=== PATIENT | male | born 1975 ===

== ENCOUNTER 2017-05-14 07:55 | Emergency (ER) | payer OTHER ==
[2017-05-14 08:07] VITALS: BMI 25.7
[2017-05-14 08:24] VITALS: BP 112/78; PULSE 68; RESP 18; TEMP 97.8; O2SAT 98
--- NOTE | 2017-05-14 08:56 | C.PDOC ---
History Of Present Illness 42 yo male come in for evaluation of nasal contusion sustained 2 days ago. Pt reports, " playing soccer, when suddenly turn and hit my nose over the post by accident". Pt sts, " have hear pop in my nose". Pt sts, gradually developed nasal coingestion, post-nasal drip and concerned about deformity over nasal bridge, did not have before. Otherwise, pt denies LOC, syncope, severe headache , dizziness, visual changes, focal deficits, neck pain, drooling, nasal discharges, ear discharges. Ambulate to ED for evaluation, not in nay apparent distress. Time Seen by Provider: 05/14/17 08:20 Chief Complaint (Nursing): ENT Problem History Per: Patient Past Medical History Reviewed: Historical Data, Nursing Documentation, Vital Signs Vital Signs: Last Vital Signs Temp 97.8 F 05/14/17 08:07 Pulse 68 05/14/17 08:07 Resp 18 05/14/17 08:07 BP 112/78 05/14/17 08:07 Pulse Ox 98 05/14/17 08:07 Surgical History: Cholecystectomy Family History: States: No Known Family Hx - Social History Hx Tobacco Use: No Hx Alcohol Use: No Hx Substance Use: No - Immunization History Hx Tetanus Toxoid Vaccination: No Hx Influenza Vaccination: No Hx Pneumococcal Vaccination: No Review Of Systems Except As Marked, All Systems Reviewed And Found Negative. Constitutional: Negative for: Fever, Chills Eyes: Negative for: Vision Change, Redness ENT: Positive for: Nose Congestion. Negative for: Ear Pain, Ear Discharge, Throat Pain, Throat Swelling Cardiovascular: Negative for: Chest Pain Musculoskeletal: Negative for: Neck Pain Skin: Negative for: Bruising Neurological: Negative for: Weakness, Numbness, Altered Mental Status, Headache , Dizziness Physical Exam - Physical Exam Appears: Well, Non-toxic, No Acute Distress Skin: Normal Color, Warm, No Rash, No Ecchymosis Head: Atraumatic, Normacephalic Eye(s): bilateral: PERRL Ear(s): Bilateral: Normal Nose: No Flaring, No Discharge, No Epistaxis, Tenderness (over nasal bridge with mild sorrounding edema, no palpable deformity.), No Septal Hematoma Oral Mucosa: Moist, No Drooling, No Trismus Tongue: Normal Appearing, No Swelling, No Lesions, No Laceration Lips: Normal Appearing, No Swelling, No Contusion Throat: No Drooling Neck: No Midline Cervical Tenderness, No Paracervical Tenderness, No Step Off Deformity, Supple Neurological/Psych: Oriented x3, Normal Speech, Normal Motor, Normal Sensation, Normal Reflexes ED Course And Treatment O2 Sat by Pulse Oximetry: 98 - Other Rad Nasal bones X-Ray: Interpreted by Me, Viewed By Me Interpretation: (-) acute fx or dislocation Progress Note: On re-evaluation, pt is afebrile, hemodynamicaly stable. Non- toxic. Tolerate Po well in ED. PulsEOx 98% RA. Head: AT/NC. ENT: exam c/w nasal congestion, possible fx. Skin intact, No epistaxis. no septal hematoma. neck: Supple, (-) midline tenderness. neurologicaly intact. Imaging review, no obvious fx. Pt advised on course of ds. Ref. to f/u with ENT in 2 -3 days for re-eavl. return if any new changes. Disposition Counseled Patient/Family Regarding: Studies Performed, Diagnosis, Need For Followup, Rx Given - Disposition Referrals: Daniel Whaley MD [Staff Provider] - Disposition: HOME/ ROUTINE Disposition Time: 08:54 Condition: STABLE Additional Instructions: USE MEDICATION PRESCRIBED APPLY ANTIBIOTIC CREAM TOPICALLY FOLLOW UP WITH ENT IN 2-3 DAYS FOR RE-EVALUATION. RETURN TO ED IF ANY WORSENING OR NEW CHANGES. Prescriptions: Bacitracin OINT 1 applic TP BID #1 tube Ibuprofen [Motrin Tab] 600 mg PO Q6 #20 tab Oxymetazoline 0.05% [Oxymetazoline HCl 30 Ml] 1 ml NS BID #1 bottle Instructions: Nasal Fracture (ED) Print Language: UPPER SORBIAN - Clinical Impression Clinical Impression: Nasal fracture
--- NOTE | 2017-05-14 10:27 | RAD ---
PROCEDURE: Bilateral nasal bones dated HISTORY: injury COMPARISON: None available. TECHNIQUE: Frontal and lateral radiographs of the nasal bones. FINDINGS: Evidence of acute displaced nasal bone fracture. The osseous structures appear intact. Frontal sinuses are slightly hypoplastic however appear well fairly well-aerated. The remaining paranasal sinuses are also well aerated with no fluid levels seen to suggest acute hemorrhage or sinusitis. Past IMPRESSION: No nasal bone fracture visualized.
== END 2017-05-14 09:05 | disposition home or self-care (01) ==
LOC: C.ER 07:55
DX: S02.2XXA Fracture of nasal bones, initial encounter for closed fracture (principal); W22.8XXA Striking against or struck by other objects, initial encounter; Y93.66 Activity, soccer

== ENCOUNTER 2017-05-24 18:56 | Emergency (ER) | payer OTHER ==
[2017-05-24 18:57] VITALS: BMI 25.7
[2017-05-24 21:22] VITALS: O2SAT 98
--- NOTE | 2017-05-24 22:02 | C.PDOC ---
History Of Present Illness <Loreto Hoffman - Last Filed: 05/24/17 22:37> <Boris Long - Last Filed: 05/25/17 00:14> 42yo male, presents today stating around 11am today, he slipped on ice and landed on his back. Patient states initially, he did not have any pain but now he is experiencing some pain to the right side of his ribs. He states he has had cough and sneezing for the past couple days and his pain is exacerbated when coughing or sneezing. He denies any nausea, vomiting, or diarrhea. He has no other medical complaints. (Loreto Hoffman) - HPI History Per: Patient History/Exam Limitations: no limitations Onset/Duration Of Symptoms: Mins Injury Occurred (Timing): Hours Ago: (10) - Fall Fall:Prior To Injury: Slipped (on ice) <Loreto Hoffman - Last Filed: 05/24/17 22:37> <Boris Long - Last Filed: 05/25/17 00:14> - HPI Time Seen by Provider: 05/24/17 21:29 Chief Complaint (Nursing): Trauma Past Medical History Reviewed: Historical Data, Nursing Documentation, Vital Signs - Medical History PMH: No Chronic Diseases Surgical History: Cholecystectomy Family History: States: No Known Family Hx - Social History Hx Tobacco Use: No Hx Alcohol Use: Yes Hx Substance Use: No - Immunization History Hx Tetanus Toxoid Vaccination: No Hx Influenza Vaccination: No Hx Pneumococcal Vaccination: No <Loreto Hoffman - Last Filed: 05/24/17 22:37> Vital Signs: Last Vital Signs Temp 98 F 05/24/17 21:17 Pulse 66 05/24/17 23:59 Resp 18 05/24/17 23:59 BP 117/61 05/24/17 23:59 Pulse Ox 98 05/24/17 23:59 Review Of Systems Cardiovascular: Positive for: Other (right sided ribs pain) Respiratory: Positive for: Cough Gastrointestinal: Negative for: Nausea, Vomiting, Diarrhea <Loreto Hoffman - Last Filed: 05/24/17 22:37> Physical Exam - Physical Exam Appears: Non-toxic, Other (uncomfortable from pain) Skin: Normal Color, Warm, Dry Head: Atraumatic, Normacephalic Eye(s): bilateral: Normal Inspection Neck: Normal ROM, No Midline Cervical Tenderness, No Paracervical Tenderness, No Step Off Deformity, Supple Chest: Symmetrical, Tenderness (point tenderness to right lower posterior ribs. No ecchymosis, swelling, stepoff deformity or crepitus noted.) Cardiovascular: Rhythm Regular, No Murmur Respiratory: No Decreased Breath Sounds, No Rales, No Rhonchi, No Wheezing Gastrointestinal/Abdominal: Normal Exam, Soft, Tenderness (mild right upper quad , old healed surgical scars in ruq and right hypogastric area from cholecystectomy) <Loreto Hoffman - Last Filed: 05/24/17 22:37> ED Course And Treatment O2 Sat by Pulse Oximetry: 98 (RA) Pulse Ox Interpretation: Normal <Loreto Hoffman - Last Filed: 05/24/17 22:37> - Laboratory Results Result Diagrams: 05/24/17 22:46 05/24/17 22:46 Lab Interpretation: Abnormal (UA 24 RBC's) - CT Scan/US abd/pelvis Other Rad Studies (CT/US): Interpreted By Me (R 11th rib fx, no visceral injury) , Radiology Report Reviewed <Boris Long - Last Filed: 05/25/17 00:14> Medical Decision Making <Loreto Hoffman - Last Filed: 05/24/17 22:37> <Boris Long - Last Filed: 05/25/17 00:14> Medical Decision Making: Plan: -- XR Ribs and Chest -- Toradol 30mg IM -- Urinalysis 1020 pm pt found to have hematuria, mild ab pain. will do ct abdomen to eval for abdomnial patholgy fron fall/ ? rib fx. labs and ct scan ordered, Dr Long aware and will /fu ct scan and dispo patient. (Loreto Hoffman) 2300: signed over to f/u CT CT + rib fx only, no organ damage (Boris Long) Disposition - Disposition Disposition Time: 22:41 <Loreto Hoffman - Last Filed: 05/24/17 22:37> Doctor Will See Patient In The: Office Counseled Patient/Family Regarding: Studies Performed, Diagnosis <Boris Long - Last Filed: 05/25/17 00:14> - Disposition Disposition: HOME/ ROUTINE Condition: STABLE Forms: [facility] (Romanian) - Clinical Impression Clinical Impression: Fall from slipping on ice, Rib injury Critical Care Time - PA / BROOM STITCHER / Resident Statement MD/DO has reviewed & agrees with the documentation as recorded. - Scribe Statement The provider has reviewed the documentation as recorded by the Scribe (Emily Alicea) <Loreto Hoffman - Last Filed: 05/24/17 22:37> <Boris Long - Last Filed: 05/25/17 00:14> - Scribe Statement Provider Attestation: All medical record entries made by the Scribe were at my direction and personally dictated by me. I have reviewed the chart and agree that the record accurately reflects my personal performance of the history, physical exam, medical decision making, and the department course for this patient. I have also personally directed, reviewed, and agree with the discharge instructions and disposition. (Loreto Hoffman)
[2017-05-24 22:20] LABS: URINE BILIRUBIN NEGATIVE (NEGATIVE); URINE BLOOD 1+ (NEGATIVE); URINE CLARITY Clear (Clear); URINE COLOR Yellow (YELLOW); URINE GLUCOSE (UA) NORMAL (Normal); URINE LEUKOCYTE ESTERASE NEG Leu/uL (Negative); URINE PROTEIN NEGATIVE (NEGATIVE)
[2017-05-24] MEDS ORDERED: Morphine 4 MG/ML VIAL ONE (22:49)
[2017-05-24 22:55] LABS: BASO # 0.1 K/uL (0.0-0.2); BASO % 1.2 % (0.0-2.0); EOS # 0.2 K/uL (0.0-0.7); EOS % 2.1 % (0.0-4.0); HEMOGLOBIN 13.6 g/dL (12.0-18.0); LYMPH # 2.4 K/uL (1.0-4.3); MEAN CORPUSCULAR HEMOGLOBIN 31.9 pg (27.0-31.0); MEAN PLATELET VOLUME 7.8 fL (7.2-11.7); MONO # 0.7 K/uL (0.0-0.8); MONO % 8.6 % (0.0-10.0); NEUT # 5.2 K/uL (1.8-7.0); NEUT % 60.1 % (50.0-75.0); NRBC % 0.1 % (0.0-2.0); RBC 4.28 Mil/uL (4.40-5.90); RED CELL DISTRIBUTION WIDTH 13.1 % (11.5-14.5); WHITE BLOOD COUNT 8.6 K/uL (4.8-10.8)
[2017-05-24 23:05] LABS: ALB/GLOB RATIO 1.2 (1.0-2.1); ALBUMIN 4.2 g/dL (3.5-5.0); ALT/SGPT 20 U/L (21-72); AST/SGOT 18 U/L (17-59); BLOOD UREA NITROGEN 24 mg/dL (9-20); GFR AFRICAN-AMERICAN > 60; GFR NON-AFRICAN AMERICAN > 60; LIPASE 191 U/L (23-300)
[2017-05-24] MEDS ORDERED: Iohexol 300 100 ML IJ ONE (23:15)
[2017-05-24 23:59] VITALS: RESP 18
--- NOTE | 2017-05-25 00:06 | CT ---
EXAM: CT Abdomen and Pelvis With Intravenous Contrast EXAM DATE/TIME: 05/24/2017 10:30 PM CLINICAL HISTORY: 42 years old, male; Pain; Abdominal pain; Flank; Right upper quadrant (ruq); Additional info: Slipped on ice, hit back TECHNIQUE: Axial computed tomography images of the abdomen and pelvis with intravenous contrast. All CT scans at this facility use one or more dose reduction techniques, viz.: automated exposure control; ma/kV adjustment per patient size (including targeted exams where dose is matched to indication; i.e. head); or iterative reconstruction technique. Coronal and sagittal reformatted images were created and reviewed. CONTRAST: 100 mL of omnipaque 300 administered intravenously. COMPARISON: There are no prior studies for comparison. FINDINGS: Lower thorax: Heart size is normal. There is dependent atelectasis at the lung bases. There are no effusions. ABDOMEN: Liver: There is fatty infiltration of the liver. Gallbladder and bile ducts: Gallbladder is absent.Common duct is unremarkable. Pancreas: unremarkable Spleen: unremarkable Adrenals: unremarkable Kidneys and ureters: unremarkable Stomach and bowel: Stomach is incompletely distended. Rotation is normal. There is no obstruction. Ileocecal region is unremarkable. Colon is incompletely distended which limits evaluation. There is scattered diverticulosis There is minimal spondylosis Appendix: See stomach and bowel PELVIS: Bladder: unremarkable Reproductive: Seminal vesicles and prostate are unremarkable. ABDOMEN and PELVIS: Intraperitoneal space: There is no free air or free fluid. Bones/joints: There is a right 11th rib fracture. There is minimal spondylosis Soft tissues: unremarkable Vasculature: Vascular structures are unremarkable. Lymph nodes: There is no pathologic adenopathy. IMPRESSION: Right 11th rib fracture, no acute solid visceral or bowel injury Additional nonemergent findings as described above.
[2017-05-25 05:40] VITALS: BP 112/76; PULSE 57; TEMP 97.9
--- NOTE | 2017-05-25 08:45 | RAD ---
PROCEDURE: Radiographs of the Chest and Right Ribs. HISTORY: landed on right side back, slipped on ice COMPARISON: None available. TECHNIQUE: Frontal radiograph of the chest and multiple oblique radiographs of the right ribs were obtained. FINDINGS: RIGHT RIBS: A lateral posterior right 11th rib fracture nondisplaced acute appearing noted. LUNGS: Clear. PLEURA: No pneumothorax or pleural fluid. CARDIOVASCULAR: Normal sized heart. No pulmonary vascular congestion. OTHER FINDINGS: None. IMPRESSION: Acute nondisplaced posterior lateral right 11th rib fracture. No pneumothorax or pleural effusion. Comments: Preliminary report per Vrad compatible with this report.
== END 2017-05-25 06:45 | disposition home or self-care (01) ==
LOC: C.ER 18:56
DX: S29.9XXA Unspecified injury of thorax, initial encounter (principal); W00.0XXA Fall on same level due to ice and snow, initial encounter; Y92.89 Other specified places as the place of occurrence of the external cause
CPT/HCPCS: 71101; 74177; 80053; 81001; 83690; 85025; 96372; 96374; 99285; J1885; J2270; Q9967

== ENCOUNTER 2017-05-26 17:40 | Emergency (ER) | payer SELFPAY ==
[2017-05-26 18:31] VITALS: BMI 25.8
[2017-05-26 18:32] VITALS: BP 104/59; PULSE 72; RESP 18; TEMP 98.1; O2SAT 99
--- NOTE | 2017-05-26 19:51 | C.PDOC ---
- HPI Time Seen by Provider: 05/26/17 19:06 Chief Complaint (Nursing): Rib Injury Past Medical History Vital Signs: Last Vital Signs Temp 98.1 F 05/26/17 18:31 Pulse 72 05/26/17 18:31 Resp 18 05/26/17 18:31 BP 104/59 L 05/26/17 18:31 Pulse Ox 99 05/26/17 18:31 Surgical History: Cholecystectomy - Social History Hx Tobacco Use: No Hx Alcohol Use: No Hx Substance Use: No - Immunization History Hx Tetanus Toxoid Vaccination: No Hx Influenza Vaccination: No Hx Pneumococcal Vaccination: No ED Course And Treatment O2 Sat by Pulse Oximetry: 99 Disposition - Disposition Referrals: [facility] [Outside] Disposition: HOME/ ROUTINE Disposition Time: 19:48 Condition: STABLE Additional Instructions: Vaya a foster mdico o la clnica en 2-5 acosta sin falta, para mas evaluacin. [place] los medicamentos susu indicado. Volver a la kashif de emergencia en cualquier momento si los sntomas persisten o empeoran. Prescriptions: Naproxen [Naprosyn] 1 tab PO BID PRN #20 tab PRN Reason: Pain oxyCODONE/Acetaminophen [Percocet 5/325 mg Tab] 1 tab PO QID PRN #20 tab PRN Reason: Pain Instructions: Rib Fracture (DC) Print Language: MALTESE
--- NOTE | 2017-05-26 19:55 | C.PDOC ---
History Of Present Illness 42 y/o male presents to the ER complaining of rib pain which has been present for the past 2 days. Patient notes that he was seen in [facility] yesterday. He had X-rays and CT scan showing a rib fracture. Patient states that he is taking Tramadol as prescribed but the pain persists.Patient reports that the pain makes it difficult to sleep. No new symptoms. No pain when not moving. Patient denies having fever, SOB, nausea, vomiting, and hematuria. Time Seen by Provider: 05/26/17 19:06 Chief Complaint (Nursing): Rib Injury History Per: Patient History/Exam Limitations: no limitations Onset/Duration Of Symptoms: Days Current Symptoms Are (Timing): Still Present Severity: Moderate Past Medical History Reviewed: Historical Data, Nursing Documentation, Vital Signs Vital Signs: Last Vital Signs Temp 98.1 F 05/26/17 18:31 Pulse 72 05/26/17 18:31 Resp 18 05/26/17 18:31 BP 104/59 L 05/26/17 18:31 Pulse Ox 99 05/26/17 20:01 - Medical History PMH: No Chronic Diseases Surgical History: Cholecystectomy Family History: States: No Known Family Hx - Social History Hx Tobacco Use: No Hx Alcohol Use: No Hx Substance Use: No - Immunization History Hx Tetanus Toxoid Vaccination: No Hx Influenza Vaccination: No Hx Pneumococcal Vaccination: No Review Of Systems Except As Marked, All Systems Reviewed And Found Negative. Constitutional: Negative for: Fever, Chills Respiratory: Negative for: Shortness of Breath Gastrointestinal: Negative for: Nausea, Vomiting Genitourinary: Negative for: Hematuria Musculoskeletal: Positive for: Other (rib pain) Physical Exam - Physical Exam Appears: Non-toxic, No Acute Distress Skin: Normal Color, Warm Head: Atraumatic, Normacephalic Eye(s): bilateral: Normal Inspection, EOMI Nose: Normal Oral Mucosa: Moist Neck: Normal ROM, Supple Chest: Symmetrical, Tenderness (tenderness to lateral chest wall) Cardiovascular: Rhythm Regular Respiratory: Normal Breath Sounds, No Accessory Muscle Use, No Rales, No Rhonchi , No Wheezing Gastrointestinal/Abdominal: Soft, No Tenderness Back: No CVA Tenderness Extremity: Normal ROM Neurological/Psych: Oriented x3, Normal Speech, Normal Motor, Normal Sensation ED Course And Treatment O2 Sat by Pulse Oximetry: 99 (RA) Pulse Ox Interpretation: Normal Progress Note: Patient has been given Toradol IM. Patient has been discharged and instructed to follow up with PMD in 1-2 days.. Disposition - Disposition Referrals: [facility] at [facility] [Outside] Disposition: HOME/ ROUTINE Disposition Time: 18:00 Condition: STABLE Additional Instructions: Vaya a foster mdico o la clnica en 2-5 acosta sin falta, para mas evaluacin. [place] los medicamentos susu indicado. Volver a la kashif de emergencia en cualquier momento si los sntomas persisten o empeoran. Prescriptions: Naproxen [Naprosyn] 1 tab PO BID PRN #20 tab PRN Reason: Pain oxyCODONE/Acetaminophen [Percocet 5/325 mg Tab] 1 tab PO QID PRN #20 tab PRN Reason: Pain Instructions: Rib Fracture (DC) Forms: [employer] ([place]in[place]) Print Language: MONGOLIAN - Clinical Impression Clinical Impression: Rib fracture - PA / PERSONAL FINANCIAL COUNSELOR / Resident Statement MD/DO has reviewed & agrees with the documentation as recorded. - Scribe Statement The provider has reviewed the documentation as recorded by the Scribe [facility] Provider Attestation All medical record entries made by the Scribe were at my direction and personally dictated by me. I have reviewed the chart and agree that the record accurately reflects my personal performance of the history, physical exam, medical decision making, and the department course for this patient. I have also personally directed, reviewed, and agree with the discharge instructions and disposition.
== END 2017-05-26 20:38 | disposition home or self-care (01) ==
LOC: C.ER 17:40
DX: S22.39XG Fracture of one rib, unspecified side, subsequent encounter for fracture with delayed healing (principal); X58.XXXD Exposure to other specified factors, subsequent encounter
CPT/HCPCS: 96372; 99283; J1885

== ENCOUNTER 2017-11-25 14:35 | Emergency (ER) | payer OTHER ==
[2017-11-25 14:36] VITALS: BMI 26.4
[2017-11-25 14:52] VITALS: BP 104/71; PULSE 77; RESP 18; O2SAT 95
[2017-11-25 14:56] VITALS: TEMP 97.9
--- NOTE | 2017-11-25 15:12 | C.PDOC ---
History Of Present Illness 42 y/o male presents to the ER complaining of increased congestion. Patient reports that the congestion is worse with lying flat. Patient states that he was diagnosed with a nasal bone fracture on 05/24/17. Patient reports that he followed up with Dr. Whaley who recommended he have surgery. However, patient could not afford it. Patient was referred to ENT at [facility]. Time Seen by Provider: 11/25/17 14:52 Chief Complaint (Nursing): ENT Problem History Per: Patient History/Exam Limitations: None Onset/Duration Of Symptoms: Days Current Symptoms Are (Timing): Still Present Severity: Moderate Past Medical History Reviewed: Historical Data, Nursing Documentation, Vital Signs Vital Signs: Last Vital Signs Temp 97.9 F 11/25/17 14:56 Pulse 77 11/25/17 14:48 Resp 18 11/25/17 14:48 BP 104/71 11/25/17 14:48 Pulse Ox 95 11/25/17 15:37 - Medical History PMH: No Chronic Diseases Surgical History: Cholecystectomy Family History: States: No Known Family Hx - Social History Hx Tobacco Use: No Hx Alcohol Use: No Hx Substance Use: No - Immunization History Hx Tetanus Toxoid Vaccination: No Hx Influenza Vaccination: No Hx Pneumococcal Vaccination: No Review Of Systems Except As Marked, All Systems Reviewed And Found Negative. Constitutional: Negative for: Fever, Chills ENT: Positive for: Nose Congestion Physical Exam - Physical Exam Appears: Non-toxic, No Acute Distress Skin: Normal Color, Warm, Dry Head: Atraumatic, Normacephalic Eye(s): bilateral: Normal Inspection Nose: Deformity (nasal bone deformity noted), No Septal Hematoma Oral Mucosa: Moist Teeth: Other (dentition intact) Throat: Normal, No Erythema, No Exudate Neck: Supple Chest: Symmetrical Neurological/Psych: Oriented x3, Normal Speech ED Course And Treatment O2 Sat by Pulse Oximetry: 95 (RA) Pulse Ox Interpretation: Normal Medical Decision Making Medical Decision Making: Impression: Nasal Bone Fracture Progress: Patient has been discharged with prescription for Sudafed and instructed to follow up with ENT in 2 days. Disposition - Disposition Disposition: HOME/ ROUTINE Disposition Time: 15:10 Condition: STABLE Additional Instructions: follow up with ENT specialist at [facility] within 2 days return to ER if symptoms worsens or progress Prescriptions: Pseudoephedrine HCl [Sudafed] 30 mg PO TID PRN #15 tablet PRN Reason: Other Instructions: Nose Fracture (DC) Forms: [facility] Discharge Inst Niuean, [employer] (Niuean) Print Language: SWAZI - Clinical Impression Clinical Impression: Nasal fracture - Scribe Statement The provider has reviewed the documentation as recorded by the Igoribe Preston Ellsworth Provider Attestation: All medical record entries made by the Igoribe were at my direction and personally dictated by me. I have reviewed the chart and agree that the record accurately reflects my personal performance of the history, physical exam, medical decision making, and the department course for this patient. I have also personally directed, reviewed, and agree with the discharge instructions and disposition.
== END 2017-11-25 15:20 | disposition home or self-care (01) ==
LOC: C.ER 14:35
DX: S02.2XXG Fracture of nasal bones, subsequent encounter for fracture with delayed healing (principal); X58.XXXD Exposure to other specified factors, subsequent encounter

== ENCOUNTER 2018-08-11 13:26 | Emergency (ER) | payer OTHER ==
[2018-08-11 13:26] VITALS: BMI 26.4
[2018-08-11 13:39] VITALS: BP 105/71; PULSE 72; RESP 18; TEMP 98.7; O2SAT 98
--- NOTE | 2018-08-11 14:22 | C.PDOC ---
History Of Present Illness 43 year old male presents to ED with complaint of nasal congestion for the past week. Patient states that he broke his nose several months ago. Since then patient has complained of nasal congestion and difficulty breathing through his nose. Patient was sent to who informed him that he would need surgery, but due to insurance reasons he has not sought surgical intervention. Patient has been seen in the ED subsequent times due to similar complaints and been given prescriptions for sudafed and afrin in the past. However, patient no longer has medications at this time, which had improved his symptoms slightly. He states that his congestion is worse when he lies down at night. He denies fever, chills, nausea, vomiting, cough, and weakness. Time Seen by Provider: 08/11/18 13:38 Chief Complaint (Nursing): ENT Problem History Per: Patient History/Exam Limitations: None Onset/Duration Of Symptoms: Days (7) Current Symptoms Are (Timing): Still Present Past Medical History Reviewed: Historical Data, Nursing Documentation, Vital Signs Vital Signs: Last Vital Signs Temp 98.7 F 08/11/18 13:31 Pulse 72 08/11/18 13:31 Resp 18 08/11/18 13:31 BP 105/71 08/11/18 13:31 Pulse Ox 98 08/11/18 13:31 Primary Care Provider: FAMILY PROVIDER,NO - Medical History PMH: No Chronic Diseases Surgical History: Cholecystectomy Family History: States: Unknown Family Hx - Social History Hx Tobacco Use: No Hx Alcohol Use: No Hx Substance Use: No - Immunization History Hx Tetanus Toxoid Vaccination: No Hx Influenza Vaccination: No Hx Pneumococcal Vaccination: No Review Of Systems Constitutional: Negative for: Fever, Chills ENT: Positive for: Nose Congestion Respiratory: Negative for: Cough Gastrointestinal: Negative for: Nausea, Vomiting Musculoskeletal: Negative for: Neck Pain Skin: Negative for: Rash Neurological: Negative for: Weakness Physical Exam - Physical Exam Appears: Well, Non-toxic, No Acute Distress Skin: Normal Color, Warm, Dry Head: Atraumatic, Normacephalic Eye(s): bilateral: Normal Inspection, PERRL, EOMI Ear(s): Bilateral: Normal Nose: No Discharge, No Deformity, No Tenderness, No Septal Hematoma, Other ((-) turbinate hypertrophy, patent nares, hyperpigmentation at the bridge of the nose) Oral Mucosa: Moist Tongue: Normal Appearing Lips: Normal Appearing Throat: Normal, No Erythema, No Exudate Neck: Normal ROM, No Supple Chest: Symmetrical, No Deformity Cardiovascular: Rhythm Regular, No Murmur Respiratory: Normal Breath Sounds, No Accessory Muscle Use, No Rales, No Rhonchi, No Wheezing Neurological/Psych: Oriented x3, Normal Speech, Normal Cognition, Normal Motor, Normal Sensation Gait: Steady ED Course And Treatment O2 Sat by Pulse Oximetry: 98 (in RA) Pulse Ox Interpretation: Normal Medical Decision Making Medical Decision Making: Impression: 43 year old male presents to ED with complaint of nasal congestion for the past week. Initial Plan: sudafed PO given advised patient ot follow up with Dr. Whaley patient verbalized understanding and is stable for discharge Disposition Counseled Patient/Family Regarding: Diagnosis, Need For Followup, Rx Given - Disposition Referrals: Daniel Whaley MD [Staff Provider] - Disposition: HOME/ ROUTINE Disposition Time: 14:19 Condition: IMPROVED Additional Instructions: Continue meds as prescribed follow up with Dr. Whaley in 1-2 days Return to the ED if symptoms worsen Prescriptions: Pseudoephedrine HCl [Sudafed 24-Hour] 240 mg PO DAILY PRN #30 tab.er.24h PRN Reason: Nasal Congestion Sodium Chloride/Sodium Bicarb [Nasa Mist Saline [place]] 1 spray NS BID #1 bottle Instructions: Pseudoephedrine Forms: [employer] (Turkish) Print Language: ICELANDIC - Clinical Impression Clinical Impression: Nasal congestion - PA / HAT BLOCK BENCH HAND / Resident Statement MD/DO has reviewed & agrees with the documentation as recorded. (Lara Shields) - Scribe Statement The provider has reviewed the documentation as recorded by the Scribe (Lara Shields) All medical record entries made by the Scribe were at my direction and personally dictated by me. I have reviewed the chart and agree that the record accurately reflects my personal performance of the history, physical exam, medical decision making, and the department course for this patient. I have also personally directed, reviewed, and agree with the discharge instructions and disposition.
== END 2018-08-11 14:36 | disposition home or self-care (01) ==
LOC: C.ER 13:26
DX: R09.81 Nasal congestion (principal)